=== PATIENT | male | born 2000 | race Caucasian/White ===

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

== ENCOUNTER 2022-01-29 07:49 | Day surgery (SDC) | payer BC ==
--- NOTE | 2022-01-29 08:42 | NUR ---
Patient ambulatory to room 1 with mask on. Rapid covid swab done due to patient stating that he has a sore throat and exposure to family member who has tested positive. Will await results prior to proceeding.
--- NOTE | 2022-01-29 09:10 | NUR ---
Rapid swab result reported as positive from the lab. Surgery notified and patient will be rescheduled for a later date per Dr. Pham.
--- NOTE | 2022-01-29 09:27 | NUR ---
Patient informed of positive covid result and dismissed to home. Instructed to follow up PCP or [facility]. Patient voices understanding of this. Mask kept in place and dismissed to home.
== END 2022-01-29 09:27 | disposition home or self-care (01) ==
LOC: SDCO 07:49
DX: S93.401A Sprain of unspecified ligament of right ankle, initial encounter (principal); Z53.8 Procedure and treatment not carried out for other reasons; S99.911A Unspecified injury of right ankle, initial encounter
CPT/HCPCS: J0690; J1100; J2250; J2405; J2704; J2795; J3010